=== PATIENT | male | born 1960 | race African-American/Black ===

== ENCOUNTER 2022-05-30 09:38 | Emergency (ER) | payer MEDICARE, MEDICAID ==
[~2022-05-30] VITALS: Ht 167.6 cm; Wt 70.5 kg
[2022-05-30 09:50] VITALS: BP 132/82
[2022-05-30] MEDS ORDERED: NAP5EC PO (10:54)
== END 2022-05-30 11:24 | disposition home or self-care (01) ==
LOC: ER 09:38
DX: M25.511 Pain in right shoulder (principal); F17.200 Nicotine dependence, unspecified, uncomplicated; Z90.49 Acquired absence of other specified parts of digestive tract; Y04.0XXA Assault by unarmed brawl or fight, initial encounter; Y93.9 Activity, unspecified; Y92.89 Other specified places as the place of occurrence of the external cause; Y99.8 Other external cause status
CPT/HCPCS: 73030; 99283; A4565